=== PATIENT | male | born 1960 | race Caucasian/White ===

== ENCOUNTER 2016-12-06 03:31 | Emergency (ER) | payer SELFPAY ==
[2016-12-06 05:09] VITALS: BP 152/84
== END 2016-12-06 05:09 | disposition home or self-care (01) ==
LOC: ED 03:31
DX: R10.32 Left lower quadrant pain (principal)
CPT/HCPCS: J1170; J1885

== ENCOUNTER 2017-08-21 11:12 | Emergency (ER) | payer MEDICAID ==
[~2017-08-21] VITALS: Ht 182.9 cm; Wt 106.6 kg
[2017-08-21 11:15] VITALS: Ht 182.9 cm; Wt 106.6 kg
[2017-08-21 13:36] VITALS: BP 122/68
== END 2017-08-21 13:30 | disposition home or self-care (01) ==
LOC: ED 11:12
DX: M25.511 Pain in right shoulder (principal); F10.129 Alcohol abuse with intoxication, unspecified; I10 Essential (primary) hypertension
CPT/HCPCS: G0480; J1885